=== PATIENT | male | born 1985 | race Caucasian/White ===

== ENCOUNTER 2016-12-20 01:00 | Emergency (ER) | payer BC, OTHER ==
[2016-12-20 01:33] VITALS: BP 162/113; PULSE 100; RESP 18; TEMP 98
[2016-12-20] MEDS ORDERED: HYDROcodone/APAP 5-325MG 1 EACH TAB PO STA (01:37)
--- NOTE | 2016-12-20 01:41 | ED ---
ENT HPI - General Chief complaint: Dental/Oral Stated complaint: Dental Pain Time Seen by Provider: 12/20/16 01:14 Source: patient, RN notes reviewed Mode of arrival: ambulatory Limitations: no limitations - History of Present Illness Initial comments: Patient is a 31-year-old male presents emergency room for evaluation of dental pain. Patient states the dental pain for the past 2 months. Patient states he has followed up with a dentist appointment on antibiotics and referred him to an oral surgeon. Patient states oral surgeon wanted to remove his tooth but is unable to afford it. Patient states he is calling oral surgeon over the past few days and no one has been returning his phone calls. Patient states having increasing pain in his left upper dental area. Patient states he's been taking ibuprofen with no relief of symptoms. Patient denies fevers or chills. Patient denies shortness of breath or trouble swallowing. Patient denies headache or dizziness. Patient denies any recent dental trauma. - Related Data Home Medications Medication Instructions Recorded Confirmed ALPRAZolam [Xanax] 0.75 mg PO HS PRN 01/05/16 01/06/16 Atenolol [Tenormin] 25 mg PO DAILY 01/05/16 01/06/16 Beclomethasone Dipropionate [Qvar 1 - 2 puff INHALATION BID 01/05/16 01/06/16 40 mcg/puff] Meloxicam [Mobic] 7.5 mg PO DAILY 01/05/16 01/06/16 traMADol HCL [Ultram] 100 mg PO Q4HR PRN 01/05/16 01/06/16 Previous Rx's Medication Instructions Recorded Albuterol Inhaler [Ventolin Hfa 2 puff INHALATION Q4HR PRN #1 11/03/14 Inhaler] inhaler Azithromycin [Zithromax] 250 mg PO DIRECTED #6 tab 01/05/16 Benzonatate [Tessalon Perles] 100 mg PO TID #10 cap 01/05/16 Lidocaine Viscous [Xylocaine 15 ml MUCOUS MEM BID #100 ml 01/05/16 Viscous 2%] Dexamethasone 0.75 mg PO DIRECTED #11 tab 01/06/16 Acetaminophen with Codeine 1 tab PO Q4H PRN #15 tab 03/05/16 [Tylenol w/codeine #3] Cephalexin [Keflex] 500 mg PO Q6HR #40 cap 03/05/16 Clindamycin [Cleocin] 300 mg PO Q6H 7 Days 12/20/16 HYDROcodone/APAP 5-325MG [[place] 1 tab PO Q6HR PRN #12 tab 12/20/16 5-325] Ibuprofen [Motrin] 800 mg PO Q6HR PRN #20 tab 12/20/16 Allergies Allergy/AdvReac Type Severity Reaction Status Date / Time latex Allergy Unknown Verified 12/20/16 01:33 Penicillins Allergy Unknown Verified 12/20/16 01:33 Review of Systems ROS Statement: Those systems with pertinent positive or pertinent negative responses have been documented in the HPI. ROS Other: All systems not noted in ROS Statement are negative. Past Medical History Past Medical History: COPD, Hypertension Additional Past Medical History / Comment(s): back pain, neck pain History of Any Multi-Drug Resistant Organisms: None Reported Past Surgical History: Orthopedic Surgery, Tonsillectomy Past Psychological History: No Psychological Hx Reported Smoking Status: Current every day smoker Past Alcohol Use History: None Reported Past Drug Use History: None Reported General Exam - General Exam Comments Initial Comments: Sitting in exam room, no acute distress. Limitations: no limitations General appearance: alert, in no apparent distress Head exam: Present: atraumatic, normocephalic, normal inspection Eye exam: Present: normal appearance Expanded Mouth exam: Present: normal external inspection Teeth exam: Present: dental caries, fractured tooth # (15), dental tenderness # (15). Absent: normal inspection (Patient has very poor dentition) Throat exam: normal inspection Neck exam: Present: normal inspection, full ROM. Absent: tenderness, lymphadenopathy Respiratory exam: Absent: respiratory distress Extremities exam: Present: normal inspection Back exam: Present: normal inspection Neurological exam: Present: alert, oriented X3, CN II-XII intact, normal gait Psychiatric exam: Present: normal affect, normal mood Skin exam: Present: warm, dry, intact, normal color. Absent: rash Course Vital Signs 12/20/16 01:31 Temperature 98.0 F Pulse Rate 100 Respiratory 18 Rate Blood Pressure 162/113 O2 Sat by Pulse 97 Oximetry Medical Decision Making - Medical Decision Making Patient is a 31-year-old male who presents to the emergency room for evaluation of dental pain. Sending patient home with antibiotics and pain medications as needed. With provide patient with oral surgeon to follow-up with. Patient states he understands everything that was discussed with him. Return parameters discussed. Case discussed with Dr. Umana. Disposition Clinical Impression: Pain, dental Disposition: HOME SELF-CARE Condition: Good Instructions: Dental Abscess (ED), Dental Caries (ED) Additional Instructions: Please follow up with a dentist. If you do not have a dentist, you may contact [facility]. Phone number is [phone] for existing clients. For new clients you may call [phone]. Another option is you have is the [facility] dental school. Phone number is [phone]. Medications as directed. [place]water gargles. Cold fluids can sometimes help with pain as well. Return to the Emergency Room for any worsening or changing symptoms. Use cold compresses to the outside of the face. Prescriptions: HYDROcodone/APAP 5-325MG [[place] 5-325] 1 tab PO Q6HR PRN #12 tab PRN Reason: Pain Ibuprofen [Motrin] 800 mg PO Q6HR PRN #20 tab PRN Reason: Pain Clindamycin [Cleocin] 300 mg PO Q6H 7 Days Referrals: Surinder Sanchez DDS [STAFF PHYSICIAN] - 1-2 days Time of Disposition: 01:40
== END 2016-12-20 01:52 | disposition home or self-care (01) ==
LOC: EC 01:00
DX: K04.7 Periapical abscess without sinus (principal); K02.9 Dental caries, unspecified; J44.9 Chronic obstructive pulmonary disease, unspecified; I10 Essential (primary) hypertension; F17.200 Nicotine dependence, unspecified, uncomplicated; Z79.899 Other long term (current) drug therapy; Z88.0 Allergy status to penicillin; Z91.040 Latex allergy status
CPT/HCPCS: 99282

== ENCOUNTER 2021-02-22 12:25 | Emergency (ER) | payer BC, OTHER ==
[2021-02-22] MEDS ORDERED: HYDROcodone/APAP 5-325MG 1 EACH TAB PO STA (12:48)
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
[2021-02-22] MEDS ORDERED: BACITRACIN OINT 1 EACH PACKET TOPICAL ONE (14:08)
[2021-02-22 14:28] VITALS: BP 174/89; PULSE 78; RESP 16; TEMP 97.9
== END 2021-02-22 14:27 | disposition home or self-care (01) ==
LOC: EC 12:25
DX: T20.16XA Burn of first degree of forehead and cheek, initial encounter (principal); T20.12XA Burn of first degree of lip(s), initial encounter; T21.12XA Burn of first degree of abdominal wall, initial encounter; T20.17XA Burn of first degree of neck, initial encounter; T20.112A Burn of first degree of left ear [any part, except ear drum], initial encounter; T23.112A Burn of first degree of left thumb (nail), initial encounter; T26.42XA Burn of left eye and adnexa, part unspecified, initial encounter; S50.312A Abrasion of left elbow, initial encounter; S70.312A Abrasion, left thigh, initial encounter; R05 Cough; I10 Essential (primary) hypertension; J44.9 Chronic obstructive pulmonary disease, unspecified; F17.200 Nicotine dependence, unspecified, uncomplicated; Z79.52 Long term (current) use of systemic steroids; Z79.1 Long term (current) use of non-steroidal anti-inflammatories (NSAID); Z88.0 Allergy status to penicillin; Z79.51 Long term (current) use of inhaled steroids; Y99.0 Civilian activity done for income or pay; X04.XXXA Exposure to ignition of highly flammable material, initial encounter
CPT/HCPCS: 99283

== ENCOUNTER 2022-02-25 06:38 | Emergency (ER) | payer BC ==
[2022-02-25 06:52] VITALS: BP 158/104; PULSE 95; RESP 18; TEMP 98
[2022-02-25] MEDS ORDERED: SODIUM CHLORIDE 0.9% 1,000 ML IV STA (07:03)
[2022-02-25] MEDS ORDERED: KETOROLAC 15 MG/ML 1 ML VIAL IVP STA ×2 (07:03→07:14)
[2022-02-25] MEDS ORDERED: diphenhydrAMINE 50 MG/ML 1 ML VIAL IVP STA ×2 (07:03→07:14)
[2022-02-25] MEDS ORDERED: METOCLOPRAMIDE 5 MG/ML 2 ML VIAL IVP STA ×2 (07:03→07:14)
--- NOTE | 2022-02-25 07:19 | ED ---
Headache HPI - General Chief Complaint: Headache Stated Complaint: Headache Time Seen by Provider: 02/25/22 06:53 Source: patient, RN notes reviewed Mode of arrival: ambulatory Limitations: no limitations - History of Present Illness Initial Comments: This a 36 show male presents emergency Department chief complaint of a headache. Patient states she's had agonal last 2-3 days. He states he had a headache similar to this of recent which lasted one week. Patient states, does not headaches prior to that. He's had no fever cough cold-like symptoms. Patient doesn't nausea and vomiting so she was headache. He has some light. No official diagnosis of migraines. Patient denies any neck pain or neck stiffness no abdominal plain no focal weakness no paresthesias. - Related Data Home Medications Medication Instructions Recorded Confirmed ALPRAZolam [Xanax] 0.75 mg PO HS PRN 01/05/16 01/06/16 Beclomethasone Dipropionate [Qvar 1 - 2 puff INHALATION BID 01/05/16 01/06/16 40 mcg/puff] Meloxicam [Mobic] 7.5 mg PO DAILY 01/05/16 01/06/16 atenoloL [Tenormin] 25 mg PO DAILY 01/05/16 01/06/16 traMADol HCL [Ultram] 100 mg PO Q4HR PRN 01/05/16 01/06/16 Previous Rx's Medication Instructions Recorded Albuterol Inhaler (Mhu) [Ventolin 2 puff INHALATION Q4HR PRN #1 11/03/14 Hfa Inhaler (Mhu)] inhaler Azithromycin [Zithromax] 250 mg PO DIRECTED #6 tab 01/05/16 Benzonatate [Tessalon Perles] 100 mg PO TID #10 cap 01/05/16 Lidocaine Viscous 2% [Xylocaine 15 ml MUCOUS MEM BID #100 ml 01/05/16 Viscous] dexAMETHasone 0.75 mg PO DIRECTED #11 tab 01/06/16 Acetaminophen with Codeine 1 tab PO Q4H PRN #15 tab 03/05/16 [Tylenol w/codeine #3] Cephalexin [Keflex] 500 mg PO Q6HR #40 cap 03/05/16 Clindamycin [Cleocin] 300 mg PO Q6H 7 Days capsule 12/20/16 HYDROcodone/APAP 5-325MG [[place] 1 tab PO Q6HR PRN #12 tab 12/20/16 5-325] Ibuprofen [Motrin] 800 mg PO Q6HR PRN #20 tab 12/20/16 HYDROcodone/APAP 5-325MG [[place] 1 tab PO Q6HR PRN 3 Days #10 tab 02/22/21 5-325] Allergies Allergy/AdvReac Type Severity Reaction Status Date / Time latex Allergy Unknown Verified 02/25/22 06:52 Penicillins Allergy Unknown Verified 02/25/22 06:52 Review of Systems ROS Statement: Those systems with pertinent positive or pertinent negative responses have been documented in the HPI. ROS Other: All systems not noted in ROS Statement are negative. Past Medical History Past Medical History: COPD, Hypertension Additional Past Medical History / Comment(s): back pain, neck pain, covid, History of Any Multi-Drug Resistant Organisms: None Reported Past Surgical History: Orthopedic Surgery, Tonsillectomy Additional Past Surgical History / Comment(s): tendon repair to right hand, Past Psychological History: No Psychological Hx Reported Smoking Status: Current every day smoker Past Alcohol Use History: Occasional Past Drug Use History: None Reported General Exam Limitations: no limitations General appearance: alert, in no apparent distress Head exam: Present: atraumatic, normocephalic, normal inspection Eye exam: Present: normal appearance, PERRL, EOMI. Absent: scleral icterus, con junctival injection, periorbital swelling ENT exam: Present: normal exam, normal oropharynx, mucous membranes moist Neck exam: Present: normal inspection, full ROM. Absent: tenderness, meningismus, lymphadenopathy Respiratory exam: Present: normal lung sounds bilaterally. Absent: respiratory distress, wheezes, rales, rhonchi, stridor Cardiovascular Exam: Present: regular rate, normal rhythm, normal heart sounds. Absent: systolic murmur, diastolic murmur, rubs, gallop, clicks GI/Abdominal exam: Present: soft, normal bowel sounds. Absent: distended, tenderness, guarding, rebound, rigid Neurological exam: Present: alert, oriented X3, CN II-XII intact, reflexes normal. Absent: motor sensory deficit Skin exam: Present: warm, dry, intact, normal color. Absent: rash Course Vital Signs 02/25/22 06:48 Temperature 98.0 F Pulse Rate 95 Respiratory 18 Rate Blood Pressure 158/104 O2 Sat by Pulse 95 Oximetry Medical Decision Making - Medical Decision Making 36-year-old male presented from for headache. Patient did have CT which showed no acute changes chronic ethmoid sinusitis. Patient labwork unremarkable. Patient states she does feel improved but still has mild headache patient is requesting to be discharged secondary to noise in the department that he prefers to go home at this point. - Lab Data Result diagrams: 02/25/22 07:20 02/25/22 07:20 Lab Results 02/25/22 02/25/22 Range/Units 07:20 07:20 WBC 9.7 (3.8-10.6) k/uL RBC 5.44 (4.30-5.90) m/uL Hgb 17.7 H (13.0-17.5) gm/dL Hct 55.6 H (39.0-53.0) % MCV 102.1 H (80.0-100.0) fL MCH 32.5 (25.0-35.0) pg MCHC 31.9 (31.0-37.0) g/dL RDW 13.0 (11.5-15.5) % Plt Count 221 (150-450) k/uL MPV 8.5 Neutrophils % 63 % Lymphocytes % 25 % Monocytes % 7 % Eosinophils % 2 % Basophils % 1 % Neutrophils # 6.1 (1.3-7.7) k/uL Lymphocytes # 2.4 (1.0-4.8) k/uL Monocytes # 0.7 (0-1.0) k/uL Eosinophils # 0.2 (0-0.7) k/uL Basophils # 0.1 (0-0.2) k/uL Macrocytosis Slight Sodium 142 (137-145) mmol/L Potassium 4.6 (3.5-5.1) mmol/L Chloride 106 (98-107) mmol/L Carbon Dioxide 26 (22-30) mmol/L Anion Gap 10 mmol/L BUN 12 (9-20) mg/dL Creatinine 1.16 (0.66-1.25) mg/dL Est GFR (CKD-EPI)AfAm >90 (>60 ml/min/1.73 sqM) Est GFR (CKD-EPI)NonAf 81 (>60 ml/min/1.73 sqM) Glucose 100 H (74-99) mg/dL Calcium 9.6 (8.4-10.2) mg/dL Total Bilirubin 0.6 (0.2-1.3) mg/dL AST 29 (17-59) U/L ALT 33 (4-49) U/L Alkaline Phosphatase 59 (38-126) U/L Total Protein 7.5 (6.3-8.2) g/dL Albumin 4.4 (3.5-5.0) g/dL Disposition Clinical Impression: Migraine headache Disposition: HOME SELF-CARE Condition: Stable Instructions (If sedation given, give patient instructions): Acute Headache (ED) Additional Instructions: Please return to the Emergency Department if symptoms worsen or any other concerns. Is patient prescribed a controlled substance at d/c from ED?: No Referrals: None,Stated [Primary Care Provider] - 1-2 days Time of Disposition: 09:07
[2022-02-25 07:50] LABS: ALT 33 U/L (4-49); AST 29 U/L (17-59); African American GFR (CKD) >90 (>60 ml/min/1.73 sqM); Albumin 4.4 g/dL (3.5-5.0); Alkaline Phosphatase 59 U/L (38-126); Anion Gap 10 mmol/L; Blood Urea Nitrogen 12 mg/dL (9-20); Calcium 9.6 mg/dL (8.4-10.2); Carbon Dioxide 26 mmol/L (22-30); Chloride 106 mmol/L (98-107); Glucose 100 mg/dL (74-99); Non-African American GFR(CKD) 81 (>60 ml/min/1.73 sqM); Potassium 4.6 mmol/L (3.5-5.1); Sodium 142 mmol/L (137-145); Total Bilirubin 0.6 mg/dL (0.2-1.3); Total Protein 7.5 g/dL (6.3-8.2)
[2022-02-25 08:20] LABS: Basophils # (A) 0.1 k/uL (0-0.2); Basophils % (A) 1 %; Eosinophils # (A) 0.2 k/uL (0-0.7); Eosinophils % (A) 2 %; HGB 17.7 gm/dL (13.0-17.5); Lymphocytes # (A) 2.4 k/uL (1.0-4.8); Lymphocytes % (A) 25 %; MCH 32.5 pg (25.0-35.0); MCHC 31.9 g/dL (31.0-37.0); MCV 102.1 fL (80.0-100.0); Macrocytosis Slight; Mean Platelet Volume 8.5; Monocytes # (A) 0.7 k/uL (0-1.0); Monocytes % (A) 7 %; Neutrophils # (A) 6.1 k/uL (1.3-7.7); Neutrophils % (A) 63 %; Platelet Count 221 k/uL (150-450); RBC 5.44 m/uL (4.30-5.90); WBC 9.7 k/uL (3.8-10.6)
[2022-02-25 08:23] LABS: HCT 55.6 % (39.0-53.0)
--- NOTE | 2022-02-25 08:45 | CT ---
EXAMINATION TYPE: CT brain wo con DATE OF EXAM: 02/25/2022 COMPARISON: None. HISTORY: Headache and vision changes. CT DLP: 1119.4 mGycm. Automated Exposure Control for Dose Reduction was Utilized. TECHNIQUE: CT scan of the head is performed without contrast. FINDINGS: There is no acute intracranial hemorrhage, mass effect, or midline shift identified. The ventricles and sulci are within normal limits in size. Portillo-white matter differentiation is maintai yuri. Mild to moderate mucosal thickening involving ethmoid sinuses bilaterally. Globes are intact sharita aterally. IMPRESSION: Chronic ethmoid sinus disease otherwise unremarkable study.
== END 2022-02-25 10:10 | disposition home or self-care (01) ==
LOC: EC 06:38
DX: G43.909 Migraine, unspecified, not intractable, without status migrainosus (principal); F17.200 Nicotine dependence, unspecified, uncomplicated; J44.9 Chronic obstructive pulmonary disease, unspecified; I10 Essential (primary) hypertension; Z88.0 Allergy status to penicillin; Z91.040 Latex allergy status; Z79.899 Other long term (current) drug therapy; Z79.51 Long term (current) use of inhaled steroids
CPT/HCPCS: 36415; 80053; 85025; 70450; 99284; 96374; 96375; 96361; J1200; J2765; J1885; J1790